=== PATIENT | male | born 1945 | race Hispanic/Latino ===

== ENCOUNTER 2016-10-28 12:53 | Observation (INO) | payer MEDICARE ==
[2016-10-28] MEDS ORDERED: Dextrose 50% SYRINGE Inj (50 ml) ONE (12:55)
[2016-10-28] MEDS ORDERED: Dextrose 50% SYRINGE Inj (50 ml) IVP ONE (13:25)
--- NOTE | 2016-10-28 13:26 | ED PDOC ---
HPI: Altered Mental Status Time Seen by Provider: 10/28/16 13:00 Chief Complaint (Nursing): Weakness/Neurological Deficit History Per: EMS Additional Complaint(s): 70-year-old male, PMHx includes Hypertension and Diabetes is brought to the emergency department with complaints of AMS. Patient was found slumped over in his car, prompting bystander to call 911. Patient had four episodes of non- bloody/non-bilious vomiting prior to arrival, after eating an orange. Patient states he feels light headed. Notes that he did not have breakfast this morning. Past Medical History Reviewed: Historical Data, Nursing Documentation, Vital Signs Vital Signs: Last Vital Signs Temp 97.7 F 10/28/16 13:02 Pulse 69 10/28/16 13:02 Resp 16 10/28/16 13:02 BP 176/81 H 10/28/16 13:02 Pulse Ox 99 10/28/16 13:02 - Medical History PMH: Diabetes, HTN - Surgical History Surgical History: Coronary Stent - Family History Family History: States: Unknown Family Hx - Social History Current smoker - smoking cessation education provided: No Alcohol: None Drugs: Denies - Home Medications Home Medications: Ambulatory Orders Medication Instructions Recorded Folic Acid/Multivit-Min/Lutein 1 tab PO DAILY 06/06/16 [Multi-Vitamin Gummies] Insulin Glargine, Recombina 42 unit SC HS 06/06/16 [Lantus] Metoprolol Tartrate [Lopressor] 25 mg PO Q12H 06/06/16 Simvastatin [Zocor] 20 mg PO HS 06/06/16 Sitagliptin Phos/Metformin HCl 1 tab PO BID 06/06/16 [Janumet 50-1,000 mg Tablet] Tamsulosin [Flomax] 0.4 mg PO DAILY 06/06/16 Umeclidinium Brm/Vilanterol Tr 1 puff IH DAILY 06/06/16 [Anoro Ellipta 62.5-25 Mcg INH] Ursodiol [Ana Forte] 500 mg PO HS 06/06/16 Insulin Lispro [humALOG] 12 units SC BID 10/28/16 - Allergies Allergies/Adverse Reactions: Allergies Allergy/AdvReac Type Severity Reaction Status Date / Time No Known Allergies Allergy Verified 06/06/16 07:14 Review of Systems ROS Statement: Except As Marked, All Systems Reviewed And Found Negative Constitutional: Positive for: Weakness. Negative for: Fever, Chills Cardiovascular: Negative for: Chest Pain, Palpitations Respiratory: Negative for: Cough, Shortness of Breath Gastrointestinal: Negative for: Nausea, Vomiting Musculoskeletal: Negative for: Neck Pain, Back Pain Skin: Negative for: Rash Neurological: Positive for: Dizziness. Negative for: Numbness, Incoordination, Change in Speech, Seizures, Altered Mental Status, Headache Physical Exam - Reviewed Nursing Documentation Reviewed: Yes Vital Signs Reviewed: Yes - Physical Exam Appears: Positive for: Non-toxic, No Acute Distress Head Exam: Positive for: ATRAUMATIC, NORMOCEPHALIC Skin: Positive for: Warm, Dry. Negative for: Rash Eye Exam: Positive for: Normal appearance, EOMI, PERRL Neck: Positive for: Painless ROM Cardiovascular/Chest: Positive for: Regular Rate, Rhythm Respiratory: Positive for: Normal Breath Sounds. Negative for: Accessory Muscle Use, Respiratory Distress Gastrointestinal/Abdominal: Positive for: Soft. Negative for: Tenderness Extremity: Positive for: Normal ROM Neurologic/Psych: Positive for: Alert, Oriented - Laboratory Results Result Diagrams: 10/28/16 13:26 10/28/16 13:26 - ECG O2 Sat by Pulse Oximetry: 99 Medical Decision Making Medical Decision Making: Impression: hypoglycemia. Fingerstick reveals blood sugar: 51 Plan: * EKG * CMP, Trop I * CBC * D50 * Zofran * Urinalysis * Reassess and Disposition Rate 66bpm Rhythm NSR Interpret LVH. No ST elevations pt still weak despite accucheck improved. pt will need obse in the hospital for sugar levels ordered d51/2ns wbc 12. ordered chest xr and urine. pt agreeable to plan to stay in hospital. 1530 Case discussed w/ family and consumer education teacher dr rajput, states pt will be admitted to service. Scribe Attestation: Documented by Melo Chatterjee acting as a scribe for Marisol Mercedes MD. Provider Attestation: All medical record entries made by the Scribe were at my direction and personally dictated by me. I have reviewed the chart and agree that the record accurately reflects my personal performance of the history, physical exam, medical decision making, and the department course for this patient. I have also personally directed, reviewed, and agree with the discharge instructions and disposition. Disposition - Clinical Impression Clinical Impression: Hypoglycemia - Patient ED Disposition Is Patient to be Admitted: Yes Counseled Patient/Family Regarding: Studies Performed, Diagnosis - Disposition Disposition Time: 15:05 Condition: STABLE - Pt Status Changed To: Hospital Disposition Of: Observation
[2016-10-28] MEDS ORDERED: Dextrose 5%/0.2% NS 500 ML IV SCH (13:45)
[2016-10-28 13:46] LABS: BASO % 0.3 % (0.0-2.0); EOS # 0.1 K/uL (0.0-0.7); EOS % 0.6 % (0.0-4.0); LYMPH # 1.7 K/uL (1.0-4.3); LYMPH % 13.6 % (20.0-40.0); MEAN CELL VOLUME 64.8 fl (80.0-94.0); MEAN CORPUSCULAR HEMOGLOBIN 20.6 pg (27.0-31.0); MEAN CORPUSCULAR HGB CONC 31.8 g/dL (33.0-37.0); MEAN PLATELET VOLUME 9.3 fl (7.2-11.7); MONO # 0.8 K/uL (0.0-0.8); MONO % 6.6 % (0.0-10.0); NEUT # 9.9 K/uL (1.8-7.0); NEUT % 78.9 % (50.0-75.0); NRBC % 0.2 % (0.0-0.0); RED CELL DISTRIBUTION WIDTH 16.6 % (11.5-14.5); WHITE BLOOD COUNT 12.6 K/uL (4.8-10.8)
[2016-10-28 13:56] LABS: ALB/GLOB RATIO 1.3 (1.0-2.1); ALKALINE PHOSPHATASE 96 U/L (38-126); ALT/SGPT 38 U/L (21-72); AST/SGOT 45 U/L (17-59); BILIRUBIN,TOTAL 0.9 mg/dl (0.2-1.3); BLOOD UREA NITROGEN 24 mg/dl (9-20); CALCIUM 9.9 mg/dL (8.4-10.2); CARBON DIOXIDE 24 mmol/L (22-30); CHLORIDE 105 mmol/L (98-107); GFR AFRICAN-AMERICAN > 60; GLUCOSE,RANDOM 47 mg/dL (75-110); SODIUM 147 mmol/l (132-148); TOTAL PROTEIN 7.9 G/DL (6.3-8.2)
[2016-10-28] MEDS: Dextrose 5%/0.9% NS 1,000 ML IV SCH ×2 (14:12→23:35)
--- NOTE | 2016-10-28 15:53 | CP.PCM.HP ---
<Luis Angel Scott - Last Filed: 10/28/16 17:04> History of Present Illness - History of Present Illness History of Present Illness: 70 YO M w/ a h/o DM II, HTN, and BPH presented to the ER for lightheaded sensation but no syncope and vomiting. Patient was at an alcoholic anonymous meeting when he suddenly started feeling lightheaded and dizzy. He went outside and and started sweating and continued to be lightheaded. He tried to eat a orange and ended up vomiting and fell to his knees. He had 4 episodes of non- bloody/ non bilious vomiting prior to arrival He did not have any loss of consciousness or hit is head anywhere, an ambulance was called by someone around him and he was brought to [facility] where he had 2 more episodes of vomiting. Denies any numbness, tingling, headache, vision change, chest pain, SOB, or weakness of extremities. - Pt admits to not having breakfast this morning. And he states he might have accidentally taken 2 doses of lantas last night instead of one. PMH: HTN, DM PSH: Stent & Appendectomy in 2004 Allergy: NKDA F/H: Thalasemia, Anemia S/H: Quit drinking 18 years ago, denies, smoking and recreational drug use. Tries to exercise daily. ED course: EKG: NSR, LVH, No ST elevations CMP, Trop I CBC: WBC:12.6, Hb:10.5, Hct:33, MCV:64.8 D50 Zofran Urinalysis Present on Admission - Present on Admission Any Indicators Present on Admission: No Review of Systems - Review of Systems Review of Systems: Negative excep Past Patient History - Infectious Disease Hx of Infectious Diseases: None - Past Medical History & Family History Past Medical History?: Yes - Past Social History Smoking Status: Former Smoker - CARDIAC Hx Hypertension: Yes - PULMONARY Hx Respiratory Disorders: No - NEUROLOGICAL Hx Neurological Disorder: Yes Hx Dizziness: Yes - ENDOCRINE/METABOLIC Hx Endocrine Disorders: Yes - HEMATOLOGICAL/ONCOLOGICAL Hx Blood Disorders: No - MUSCULOSKELETAL/RHEUMATOLOGICAL Hx Musculoskeletal Disorders: No Hx Falls: No - GASTROINTESTINAL Hx Gastrointestinal Disorders: No - PSYCHIATRIC Hx Psychophysiologic Disorder: No Hx Substance Use: No - SURGICAL HISTORY Hx Coronary Stent: Yes - ANESTHESIA Hx Anesthesia: Yes Hx Anesthesia Reactions: No Meds Allergies/Adverse Reactions: Allergies Allergy/AdvReac Type Severity Reaction Status Date / Time No Known Allergies Allergy Verified 06/06/16 07:14 Physical Exam - Constitutional Appears: No Acute Distress - Head Exam Head Exam: ATRAUMATIC, NORMAL INSPECTION, NORMOCEPHALIC - Eye Exam Eye Exam: Normal appearance - Respiratory Exam Respiratory Exam: Clear to Auscultation Bilateral, NORMAL BREATHING PATTERN - Cardiovascular Exam Cardiovascular Exam: REGULAR RHYTHM, +S1, +S2 - GI/Abdominal Exam GI & Abdominal Exam: Normal Bowel Sounds, Soft. absent: Tenderness - Extremities Exam Extremities exam: Positive for: normal inspection. Negative for: calf tenderness Results - Vital Signs Recent Vital Signs: Last Vital Signs Temp 97.7 F 10/28/16 13:02 Pulse 69 10/28/16 15:00 Resp 20 10/28/16 15:00 BP 140/70 10/28/16 15:00 Pulse Ox 99 10/28/16 15:29 - Labs Result Diagrams: 10/28/16 13:26 10/28/16 13:26 Labs: Laboratory Results - last 24 hr 10/28/16 13:26 WBC 12.6 H D RBC 5.09 Hgb 10.5 L Hct 33.0 L MCV 64.8 L MCH 20.6 L MCHC 31.8 L RDW 16.6 H Plt Count 202 MPV 9.3 Neut % (Auto) 78.9 H Lymph % (Auto) 13.6 L Owen % (Auto) 6.6 Eos % (Auto) 0.6 Baso % (Auto) 0.3 Neut # 9.9 H Lymph # 1.7 Owen # 0.8 Eos # 0.1 Baso # 0.0 Sodium 147 Potassium 4.0 Chloride 105 Carbon Dioxide 24 Anion Gap 22 H BUN 24 H Creatinine 0.8 Est GFR ( Amer) > 60 Est GFR (Non-Af Amer) > 60 Random Glucose 47 L Calcium 9.9 Total Bilirubin 0.9 AST 45 ALT 38 Alkaline Phosphatase 96 Troponin I 0.0140 Total Protein 7.9 Albumin 4.5 Globulin 3.4 Albumin/Globulin Ratio 1.3 Assessment & Plan - Assessment and Plan (Free Text) Assessment: Pt is a 70 y/o male with history of HTN, BPH and type 2 diabetes being admitted for Hypoglycemia Plan: 1) Weakness and lightheadedness - likely secondary to hypoglycemia as a result of improper administration of insulin and dehydration. - Mentation improved - dextrose 50 ml IVP given in ER. Dextrose 5%/.9 NS - F/U w/ morning CBC and CMP, Accucheck 2) HTN Continue Metoprolol 25 Q12hrs 3)BPH Flomax 0.4mg PO HS 4) Hyperlipedemia Simvastatin 20 mg PO HS 5)Diabetes Janumet 50-1000mg tab Insulin Glargine 42 units SC HS Humalog 12units SC BID Diabetic diet 6) DVT prophylaxis Lovenox 40 SC daily <Rafael Garcia - Last Filed: 10/29/16 06:41> Results - Vital Signs Recent Vital Signs: Last Vital Signs Temp 100.8 F H 10/28/16 21:04 Pulse 76 10/29/16 05:42 Resp 20 10/28/16 21:04 BP 133/76 10/29/16 05:42 Pulse Ox 96 10/28/16 21:04 - Labs Result Diagrams: 10/28/16 13:26 10/28/16 13:26 Labs: Laboratory Results - last 24 hr 10/28/16 10/28/16 10/28/16 16:34 16:35 18:28 POC Glucose (mg/dL) 162 H Troponin I 0.0130 Urine Color Yellow Urine Clarity Clear Urine pH 6.0 Ur Specific Hugo 1.021 Urine Protein 30 Urine Glucose (UA) 50 Urine Ketones Negative Urine Blood Negative Urine Nitrate Negative Urine Bilirubin Negative Urine Urobilinogen 0.2-1.0 Ur Leukocyte Esterase Neg Urine RBC (Auto) 1 Urine Microscopic WBC 1 Urine Bacteria Rare 10/28/16 10/29/16 18:54 00:30 POC Glucose (mg/dL) 149 H Troponin I 0.0140 Urine Color Urine Clarity Urine pH Ur Specific Hugo Urine Protein Urine Glucose (UA) Urine Ketones Urine Blood Urine Nitrate Urine Bilirubin Urine Urobilinogen Ur Leukocyte Esterase Urine RBC (Auto) Urine Microscopic WBC Urine Bacteria Attending/Attestation - Attestation I have personally seen and examined this patient.: Yes I have fully participated in the care of the patient.: Yes I have reviewed all pertinent clinical information: Yes
--- NOTE | 2016-10-28 16:27 | RAD ---
HISTORY: hypoglycemia COMPARISON: 06/06/2016 FINDINGS: LUNGS: The lungs are clear. PLEURA: No significant pleural effusion identified, no pneumothorax apparent. CARDIOVASCULAR: The heart is normal in size. OSSEOUS STRUCTURES: No significant abnormalities. VISUALIZED UPPER ABDOMEN: Normal. OTHER FINDINGS: None. IMPRESSION: No active pulmonary disease.
[2016-10-28 16:44] LABS: RBC URINE 1 /hpf (0-3); URINE BACTERIA RARE (<OCC); URINE BILIRUBIN NEGATIVE (NEGATIVE); URINE BLOOD NEGATIVE (NEGATIVE); URINE COLOR YELLOW (YELLOW); URINE GLUCOSE (UA) 50 mg/dL (Normal); URINE KETONE NEGATIVE (NEGATIVE); URINE LEUKOCYTE ESTERASE NEG Leu/uL (Negative); URINE PROTEIN 30 mg/dL (NEGATIVE); URINE UROBILINOGEN 0.2-1.0 mg/dL (0.2-1.0); WBC URINE 1 /hpf (0-5)
[2016-10-28] MEDS ORDERED: Glucagon Recombinant 1 mg Inj IM PRN (16:48)
[2016-10-28] MEDS ORDERED: Dextrose 50% SYRINGE Inj (50 ml) IV PRN (16:48)
[2016-10-28] MEDS: Insulin Regular 100 units/ml SC SCH ×2 (18:13→22:50)
[2016-10-28 21:05] VITALS: RESP 20
[2016-10-29] MEDS: Dextrose 5%/0.9% NS 1,000 ML IV SCH (05:43)
[2016-10-29] MEDS: Insulin Regular 100 units/ml SC SCH ×2 (06:50→12:02)
[2016-10-29 07:07] LABS: HEMATOCRIT 27.1 % (35.0-51.0); MEAN CELL VOLUME 64.5 fl (80.0-94.0); MEAN CORPUSCULAR HEMOGLOBIN 21.1 pg (27.0-31.0); MEAN CORPUSCULAR HGB CONC 32.7 g/dL (33.0-37.0); RED CELL DISTRIBUTION WIDTH 16.3 % (11.5-14.5); WHITE BLOOD COUNT 5.7 K/uL (4.8-10.8)
[2016-10-29 07:12] LABS: ALB/GLOB RATIO 1.2 (1.0-2.1); ALKALINE PHOSPHATASE 65 U/L (38-126); ALT/SGPT 49 U/L (21-72); AST/SGOT 46 U/L (17-59); BLOOD UREA NITROGEN 17 mg/dl (9-20); CALCIUM 8.6 mg/dL (8.4-10.2); CARBON DIOXIDE 23 mmol/L (22-30); CHLORIDE 105 mmol/L (98-107); GFR AFRICAN-AMERICAN > 60; GLUCOSE,RANDOM 120 mg/dL (75-110); POTASSIUM 3.9 MMOL/L (3.6-5.0); SODIUM 143 mmol/l (132-148); TOTAL PROTEIN 6.6 G/DL (6.3-8.2)
--- NOTE | 2016-10-29 07:59 | CP.PCM.DIS ---
Addendum entered and electronically signed by Luis Angel Scott MD 10/29/16 11:41 : Physical Exam: General: NAD HEENT: NCAT CVS: RRR, S1S3 heard, no M/R/G Resp: CTAB no W/R/R Abdomen: Soft, NTND, BS + [employer] GUIDE: Cranial nerves intact. Motor and sensation grossly intact Original Note: <Luis Angel Scott - Last Filed: 10/29/16 10:58> Provider - Provider Date of Admission: 10/28/16 15:54 Attending physician: Giancarlo Jackson MD Primary care physician: Giancarlo Jackson MD Time Spent in preparation of Discharge (in minutes): 30 Diagnosis - Discharge Diagnosis (1) Hypoglycemia Status: Acute (2) Dizziness Status: Acute Diagnosis Date: 06/07/16 Hospital Course - Lab Results Lab Results: Most Recent Lab Values WBC 5.7 K/uL (4.8-10.8) D 10/29/16 05:35 RBC 4.20 Mil/uL (4.40-5.90) L 10/29/16 05:35 Hgb 8.9 g/dL (12.0-18.0) L 10/29/16 05:35 Hct 27.1 % (35.0-51.0) L 10/29/16 05:35 MCV 64.5 fl (80.0-94.0) L 10/29/16 05:35 MCH 21.1 pg (27.0-31.0) L 10/29/16 05:35 MCHC 32.7 g/dL (33.0-37.0) L 10/29/16 05:35 RDW 16.3 % (11.5-14.5) H 10/29/16 05:35 Plt Count 144 K/uL (130-400) 10/29/16 05:35 MPV 9.3 fl (7.2-11.7) 10/28/16 13:26 Neut % (Auto) 78.9 % (50.0-75.0) H 10/28/16 13:26 Lymph % (Auto) 13.6 % (20.0-40.0) L 10/28/16 13:26 Ashley % (Auto) 6.6 % (0.0-10.0) 10/28/16 13:26 Eos % (Auto) 0.6 % (0.0-4.0) 10/28/16 13:26 Baso % (Auto) 0.3 % (0.0-2.0) 10/28/16 13:26 Neut # 9.9 K/uL (1.8-7.0) H 10/28/16 13:26 Lymph # 1.7 K/uL (1.0-4.3) 10/28/16 13:26 Ashley # 0.8 K/uL (0.0-0.8) 10/28/16 13: Eos # 0.1 K/uL (0.0-0.7) 10/28/16 13: Baso # 0.0 K/uL (0.0-0.2) 10/28/16 13:26 Sodium 143 mmol/l (132-148) 10/29/16 05:35 Potassium 3.9 MMOL/L (3.6-5.0) 10/29/16 05:35 Chloride 105 mmol/L (98-107) 10/29/16 05:35 Carbon Dioxide 23 mmol/L (22-30) 10/29/16 05:35 Anion Gap 19 (10-20) 10/29/16 05:35 BUN 17 mg/dl (9-20) 10/29/16 05:35 Creatinine 0.7 mg/dL (0.8-1.5) L 10/29/16 05:35 Est GFR ( Amer) > 60 10/29/16 05:35 Est GFR (Non-Af Amer) > 60 10/29/16 05:35 POC Glucose (mg/dL) 126 mg/dL (65-110) H 10/29/16 05:58 Random Glucose 120 mg/dL (75-110) H 10/29/16 05:35 Calcium 8.6 mg/dL (8.4-10.2) 10/29/16 05:35 Total Bilirubin 1.0 mg/dl (0.2-1.3) 10/29/16 05:35 AST 46 U/L (17-59) 10/29/16 05:35 ALT 49 U/L (21-72) 10/29/16 05:35 Alkaline Phosphatase 65 U/L (38-126) 10/29/16 05:35 Troponin I 0.0140 ng/mL (0.00-0.120) 10/29/16 00:30 Total Protein 6.6 G/DL (6.3-8.2) 10/29/16 05:35 Albumin 3.7 g/dL (3.5-5.0) 10/29/16 05:35 Globulin 3.0 gm/dL (2.2-3.9) 10/29/16 05:35 Albumin/Globulin Ratio 1.2 (1.0-2.1) 10/29/16 05:35 Urine Color Yellow (YELLOW) 10/28/16 16:35 Urine Clarity Clear (Clear) 10/28/16 16:35 Urine pH 6.0 (5.0-8.0) 10/28/16 16:35 Ur Specific Philo 1.021 (1.003-1.030) 10/28/16 16:35 Urine Protein 30 mg/dL (NEGATIVE) 10/28/16 16:35 Urine Glucose (UA) 50 mg/dL (Normal) 10/28/16 16:35 Urine Ketones Negative mg/dL (NEGATIVE) 10/28/16 16:35 Urine Blood Negative (NEGATIVE) 10/28/16 16:35 Urine Nitrate Negative (NEGATIVE) 10/28/16 16:35 Urine Bilirubin Negative (NEGATIVE) 10/28/16 16:35 Urine Urobilinogen 0.2-1.0 mg/dL (0.2-1.0) 10/28/16 16:35 Ur Leukocyte Esterase Neg Oswaldo/uL (Negative) 10/28/16 16:35 Urine RBC (Auto) 1 /hpf (0-3) 10/28/16 16:35 Urine Microscopic WBC 1 /hpf (0-5) 10/28/16 16:35 Urine Bacteria Rare (<OCC) 10/28/16 16:35 - Hospital Course Hospital Course: 70 YO M w/ h/p DM II, HTN, and BPH was admitted for hypoglycemia, nausea and vomiting. During the hospital stay pt was given -D5W -Troponin x 3. -Baseline EKG was same as baseline -U/A: WNL -Chest X Ray: WNL - Currently feels much better no SOB, Chest pain, N/V/D. Discharge Exam - Head Exam Head Exam: ATRAUMATIC, NORMOCEPHALIC Discharge Plan - Follow Up Plan Condition: STABLE Disposition: HOME/ ROUTINE Instructions: Weakness (GEN) Additional Instructions: Pt is stable for discharge. F/U w/ PMD w/ in 1 week. Return to ER if symptoms reoccur or worsen. Ambulatory orders: Umeclidinium 1 puff daily Tamsulosin .4 mg PO daily Sitagliptin 1 tab PO BID Lantas 42 units SC HS Lopressor 25 mg PO Q12 Folic acid 1 tab po daily Ursodiol 500 mg PO Hs Simvastatin 20 mg PO HS Humalog 12 units SC BID Referrals: Giancarlo Jackson MD [Primary Care Provider] - <Giancarlo Jackson - Last Filed: 11/01/16 07:01> Provider - Provider Date of Admission: 10/28/16 15:54 Attending physician: Giancarlo Jackson MD Primary care physician: Giancarlo Jackson MD Hospital Course - Lab Results Lab Results: Micro Results 10/28/16 17:20 Urine Urine Culture - Final No Growth (<1,000 CFU/ML) Most Recent Lab Values WBC 5.7 K/uL (4.8-10.8) D 10/29/16 05:35 RBC 4.20 Mil/uL (4.40-5.90) L 10/29/16 05:35 Hgb 8.9 g/dL (12.0-18.0) L 10/29/16 05:35 Hct 27.1 % (35.0-51.0) L 10/29/16 05:35 MCV 64.5 fl (80.0-94.0) L 10/29/16 05:35 MCH 21.1 pg (27.0-31.0) L 10/29/16 05:35 MCHC 32.7 g/dL (33.0-37.0) L 10/29/16 05:35 RDW 16.3 % (11.5-14.5) H 10/29/16 05:35 Plt Count 144 K/uL (130-400) 10/29/16 05:35 MPV 9.3 fl (7.2-11.7) 10/28/16 13:26 Neut % (Auto) 78.9 % (50.0-75.0) H 10/28/16 13:26 Lymph % (Auto) 13.6 % (20.0-40.0) L 10/28/16 13:26 Ashley % (Auto) 6.6 % (0.0-10.0) 10/28/16 13:26 Eos % (Auto) 0.6 % (0.0-4.0) 10/28/16 13:26 Baso % (Auto) 0.3 % (0.0-2.0) 10/28/16 13: Neut # 9.9 K/uL (1.8-7.0) H 10/28/16 13: Lymph # 1.7 K/uL (1.0-4.3) 10/28/16 13: Ashley # 0.8 K/uL (0.0-0.8) 10/28/16 13: Eos # 0.1 K/uL (0.0-0.7) 10/28/16 13: Baso # 0.0 K/uL (0.0-0.2) 10/28/16 13:26 Sodium 143 mmol/l (132-148) 10/29/16 05:35 Potassium 3.9 MMOL/L (3.6-5.0) 10/29/16 05:35 Chloride 105 mmol/L (98-107) 10/29/16 05:35 Carbon Dioxide 23 mmol/L (22-30) 10/29/16 05:35 Anion Gap 19 (10-20) 10/29/16 05:35 BUN 17 mg/dl (9-20) 10/29/16 05:35 Creatinine 0.7 mg/dL (0.8-1.5) L 10/29/16 05:35 Est GFR ( Amer) > 60 10/29/16 05:35 Est GFR (Non-Af Amer) > 60 10/29/16 05:35 POC Glucose (mg/dL) 183 mg/dL (65-110) H 10/29/16 10:41 Random Glucose 120 mg/dL (75-110) H 10/29/16 05:35 Calcium 8.6 mg/dL (8.4-10.2) 10/29/16 05:35 Total Bilirubin 1.0 mg/dl (0.2-1.3) 10/29/16 05:35 AST 46 U/L (17-59) 10/29/16 05:35 ALT 49 U/L (21-72) 10/29/16 05:35 Alkaline Phosphatase 65 U/L (38-126) 10/29/16 05:35 Troponin I 0.0140 ng/mL (0.00-0.120) 10/29/16 00:30 Total Protein 6.6 G/DL (6.3-8.2) 10/29/16 05:35 Albumin 3.7 g/dL (3.5-5.0) 10/29/16 05:35 Globulin 3.0 gm/dL (2.2-3.9) 10/29/16 05:35 Albumin/Globulin Ratio 1.2 (1.0-2.1) 10/29/16 05:35 Urine Color Yellow (YELLOW) 10/28/16 16:35 Urine Clarity Clear (Clear) 10/28/16 16:35 Urine pH 6.0 (5.0-8.0) 10/28/16 16:35 Ur Specific Philo 1.021 (1.003-1.030) 10/28/16 16:35 Urine Protein 30 mg/dL (NEGATIVE) 10/28/16 16:35 Urine Glucose (UA) 50 mg/dL (Normal) 10/28/16 16:35 Urine Ketones Negative mg/dL (NEGATIVE) 10/28/16 16:35 Urine Blood Negative (NEGATIVE) 10/28/16 16:35 Urine Nitrate Negative (NEGATIVE) 10/28/16 16:35 Urine Bilirubin Negative (NEGATIVE) 10/28/16 16:35 Urine Urobilinogen 0.2-1.0 mg/dL (0.2-1.0) 10/28/16 16:35 Ur Leukocyte Esterase Neg Oswaldo/uL (Negative) 10/28/16 16:35 Urine RBC (Auto) 1 /hpf (0-3) 10/28/16 16:35 Urine Microscopic WBC 1 /hpf (0-5) 10/28/16 16:35 Urine Bacteria Rare (<OCC) 10/28/16 16:35 Attending/Attestation - Attestation I have personally seen and examined this patient.: Yes I have fully participated in the care of the patient.: Yes I have reviewed all pertinent clinical information, including history, physical exam and plan: Yes
[2016-10-29 08:41] VITALS: BP 131/76; PULSE 56; TEMP 98.9; O2SAT 98
[2016-10-29] MEDS ORDERED: Enoxaparin 40 mg Syringe SC SCH (09:00)
--- NOTE | 2016-10-29 13:59 | CARD ---
APPROVED REPORT EKG Measurement Heart [id number] <Conclusion> Sinus rhythm with 1st degree AV block Left axis deviation Left ventricular hypertrophy with QRS widening Abnormal ECG
--- NOTE | 2016-10-29 15:56 | CARD ---
APPROVED REPORT EXAM: Two-dimensional and M-mode echocardiogram with Doppler and color Doppler. Other Information Quality : AverageRhythm : NSR INDICATION Hypertension/HCVD LVH 2D DIMENSIONS IVSd1.31 (0.7-1.1cm)LVDd4.50 (3.9-5.9cm) LVOT Diameter1.77 (1.8-2.4cm)PWd1.20 (0.7-1.1cm) IVSs1.74 (0.8-1.2cm)LVDs3.08 (2.5-4.0cm) FS (%) 31.6 %PWs1.62 (0.8-1.2cm) M-Mode DIMENSIONS Left Atrium (MM)4.49 (2.5-4.0cm)IVSd1.15 (0.7-1.1cm) Aortic Root3.96 (2.2-3.7cm)LVDd5.45 (4.0-5.6cm) Aortic Cusp Exc.2.18 (1.5-2.0cm)PWd0.98 (0.7-1.1cm) IVSs1.26 cmFS (%) 29 % LVDs3.88 (2.0-3.8cm)PWs1.29 cm Mitral Valve MV E Icdwltyq851.4cm/sMV DECEL [id number] A Wfciogue59.0cm/s MV SVR66klR/A ratio1.3MVA (PHT)2.65cm2 TDI Lateral E' Peak V13.28cm/sMedial E' Peak V8.64cm/sE/Lateral E'8.2 E/Medial E'12.5 Pulmonary Valve PV Peak Ellhkngy224.4cm/s Tricuspid Valve TR Peak Myatdibn796ot/sRAP PLIERBLH67reSpHV Peak Gr.30mmHg AVRS82lpSu LEFT VENTRICLE The left ventricle is normal size. There is mild concentric left ventricular hypertrophy. The left ventricular function is normal. The left ventricular ejection fraction is within the normal range. The Ejection Fraction is 50-55%. There is normal LV segmental wall motion. The left ventricular diastolic function is normal. There is no mass noted in the left ventricle. RIGHT VENTRICLE The right ventricle is normal size. There is normal right ventricular wall thickness. The right ventricular systolic function is normal. ATRIA The left atrium size is normal. The right atrium size is normal. The interatrial septum is intact with no evidence for an atrial septal defect. AORTIC VALVE The aortic valve is normal in structure and function. No aortic regurgitation is present. There is no aortic valvular stenosis. There is no aortic valvular vegetation. MITRAL VALVE The mitral valve is normal in structure and function. There is no evidence of mitral valve prolapse. There is no mitral valve stenosis. There is no mitral valve regurgitation noted. TRICUSPID VALVE The tricuspid valve is normal in structure and function. There is no tricuspid valve regurgitation noted. There is no tricuspid valve prolapse or vegetation. There is no tricuspid valve stenosis. PULMONIC VALVE The pulmonary valve is normal in structure and function. There is no pulmonic valvular regurgitation. There is no pulmonic valvular stenosis. GREAT VESSELS The aortic root is normal in size. The ascending aorta is normal in size. The IVC is normal in size and collapses >50% with inspiration. PERICARDIAL EFFUSION The pericardium appears normal. There is no pleural effusion. <Conclusion> The left ventricle is normal size. There is mild concentric left ventricular hypertrophy. The left ventricular function is normal. The left ventricular ejection fraction is within the normal range. The Ejection Fraction is 50-55%.
== END 2016-10-29 14:37 | disposition home or self-care (01) ==
LOC: H.ER 12:53 → H.ERHOLD 15:54 → H.MEDSURG1 18:27
PROVIDERS: ADMIT Family Medicine; ATTEND Family Medicine
DX: E11.649 Type 2 diabetes mellitus with hypoglycemia without coma (principal); I10 Essential (primary) hypertension; N40.0 Benign prostatic hyperplasia without lower urinary tract symptoms; Z95.5 Presence of coronary angioplasty implant and graft; I25.10 Atherosclerotic heart disease of native coronary artery without angina pectoris; E86.0 Dehydration; E78.5 Hyperlipidemia, unspecified
CPT/HCPCS: 36415; 71010; 80053; 81003; 82948; 84484; 85025; 85027; 87086; 93005; 93306; 96372; 96374; 96375; 99285; G0378; J1650; J2405; J7042

== ENCOUNTER 2016-10-30 07:51 | Observation (INO) | payer MEDICARE, OTHER ==
[2016-10-30] MEDS ORDERED: Sodium Chloride 0.9% 500 ML IV STA (08:11)
--- NOTE | 2016-10-30 08:14 | ED PDOC ---
Hyperglycemia/Hypoglycemia Time Seen by Provider: 10/30/16 07:55 Chief Complaint (Nursing): Dizziness/Lightheaded Chief Complaint (Provider): Dizziness/Lightheaded History Per: Patient History/Exam Limitations: no limitations Onset/Duration Of Symptoms: Days Current Symptoms Are (Timing): Still Present Severity: Moderate Current Diabetic Medications: Insulin Associated Infectious Symptoms: Nausea : The patient does not have any of the infectious symptoms listed except for those marked. Treatment Prior To Provider Evaluation: None Additional Complaint(s): Patient is a 70 year old male with a history of DM, presents to ED for lightheadedness with nausea this morning. Patient notes similar symptoms yesterday with vomiting, EMS called and blood sugar was found to be 34. Patient was brought to ED at that time, admitted and discharged last night after feeling better. Patient reports that he normally take 50 units of Lantus at night and believes that the night prior he may have accidentally taken an extra dose of Lantus, so last night he only took 10 units. Patient denies chest pain, SOB, vomiting, numbness or tingling. Reports blood sugar at home this morning was 166. No headaches, weakness. NO chest pain, dyspnea. No cough. Past Medical History Reviewed: Historical Data, Nursing Documentation, Vital Signs Vital Signs: Last Vital Signs Temp 97.6 F 10/30/16 07:56 Pulse 50 L 10/30/16 07:56 Resp 20 10/30/16 07:56 BP 168/72 H 10/30/16 07:56 Pulse Ox 98 10/30/16 07:56 - Medical History PMH: Diabetes, HTN, Hypercholesterolemia - Surgical History Surgical History: Coronary Stent - Family History Family History: States: Unknown Family Hx - Living Arrangements Living Arrangements: With Family - Social History Current smoker - smoking cessation education provided: No Alcohol: None Drugs: Denies - Home Medications Home Medications: Ambulatory Orders Medication Instructions Recorded Folic Acid/Multivit-Min/Lutein 1 tab PO DAILY 06/06/16 [Multi-Vitamin Gummies] Insulin Glargine, Recombina 42 unit SC HS 06/06/16 [Lantus] Metoprolol Tartrate [Lopressor] 25 mg PO Q12H 06/06/16 Simvastatin [Zocor] 20 mg PO HS 06/06/16 Sitagliptin Phos/Metformin HCl 1 tab PO BID 06/06/16 [Janumet 50-1,000 mg Tablet] Tamsulosin [Flomax] 0.4 mg PO DAILY 06/06/16 Umeclidinium Brm/Vilanterol Tr 1 puff IH DAILY 06/06/16 [Anoro Ellipta 62.5-25 Mcg INH] Ursodiol [Ana Forte] 500 mg PO HS 06/06/16 Insulin Lispro [humALOG] 12 units SC BID 10/28/16 - Allergies Allergies/Adverse Reactions: Allergies Allergy/AdvReac Type Severity Reaction Status Date / Time No Known Allergies Allergy Verified 10/30/16 08:11 Review of Systems ROS Statement: Except As Marked, All Systems Reviewed And Found Negative Constitutional: Negative for: Fever ENT: Negative for: Ear Pain Cardiovascular: Positive for: Light Headedness. Negative for: Chest Pain, Palpitations Respiratory: Negative for: Shortness of Breath Gastrointestinal: Positive for: Nausea. Negative for: Vomiting, Abdominal Pain Musculoskeletal: Negative for: Neck Pain Neurological: Positive for: Dizziness. Negative for: Weakness, Numbness, Change in Speech, Headache Physical Exam - Reviewed Nursing Documentation Reviewed: Yes Vital Signs Reviewed: Yes - Physical Exam Appears: Positive for: Non-toxic, No Acute Distress Skin: Positive for: Normal Color, Warm Eye Exam: Positive for: Normal appearance, EOMI, PERRL ENT: Positive for: Normal ENT Inspection. Negative for: Nasal Congestion, Pharyngeal Erythema Neck: Positive for: Normal, Painless ROM, Supple Cardiovascular/Chest: Positive for: Regular Rate, Rhythm. Negative for: Murmur Respiratory: Positive for: Normal Breath Sounds. Negative for: Respiratory Distress Gastrointestinal/Abdominal: Positive for: Normal Exam, Soft. Negative for: Tenderness Back: Positive for: Normal Inspection. Negative for: L CVA Tenderness, R CVA Tenderness Extremity: Positive for: Normal ROM. 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 Negative for: Motor/Sensory Deficits, Aphasia, Facial Droop - Laboratory Results Result Diagrams: 10/30/16 10:35 10/30/16 10:35 Interpretation Of Abn Labs: no acute - ECG ECG: Positive for: Interpreted By Me, Viewed By Me ECG Rhythm: Positive for: Sinus Rhythm Interpretation Of Abn EKG: same as old O2 Sat by Pulse Oximetry: 98 (RA) Pulse Ox Interpretation: Normal - CT Scan/US ct Other Rad Studies (CT/US): Read By Radiologist Other Rad Interpretation: no acute - Progress ED Course And Treament: 1158: Stable. AAOx3. Pain free but still dizzy and has weakness all over. Not comfortable going home. Will admit tele obs. [facility] Will admit. Medical Decision Making Medical Decision Making: Time: 0810 Initial impression: R/O hypoglycemia vs intercranial pathology Initial plan: -- CT-head -- EKG -- CMp -- Troponin -- CBC -- PT/PTT -- NSF and Antivert Time: 40 CT results reviewed PROCEDURE: CT HEAD WITHOUT CONTRAST. HISTORY: headache COMPARISON: None available. TECHNIQUE: Axial computed tomography images were obtained through the head/brain without intravenous contrast. Radiation dose: Total exam DLP = mGy-cm. FINDINGS: HEMORRHAGE: No intracranial hemorrhage. BRAIN: No mass effect or edema. No atrophy or chronic microvascular ischemic changes. VENTRICLES: Unremarkable. No hydrocephalus. CALVARIUM: Unremarkable. PARANASAL SINUSES: Unremarkable as visualized. No significant inflammatory changes. MASTOID AIR CELLS: Unremarkable as visualized. No inflammatory changes. OTHER FINDINGS: None. IMPRESSION: Normal CT of the Head. Scribe Attestation: Documented by Negar Yoder acting as a scribe for Dio Thomas MD MD Scribe Attestation: All medical record entries made by the Scribe were at my direction and personally dictated by me. I have reviewed the chart and agree that the record accurately reflects my personal performance of the history, physical exam, medical decision making, and the department course for this patient. I have also personally directed, reviewed, and agree with the discharge instructions and disposition. Disposition - Clinical Impression Clinical Impression: Dizziness, Weakness - Patient ED Disposition Is Patient to be Admitted: Yes Counseled Patient/Family Regarding: Studies Performed, Diagnosis - Disposition Disposition Time: 11:59 Condition: STABLE Instructions: Weakness (ED) - Pt Status Changed To: Hospital Disposition Of: Observation - POA Present On Arrival: None
--- NOTE | 2016-10-30 09:38 | CT ---
PROCEDURE: CT HEAD WITHOUT CONTRAST. HISTORY: headache COMPARISON: None available. TECHNIQUE: Axial computed tomography images were obtained through the head/brain without intravenous contrast. Radiation dose: Total exam DLP = mGy-cm. FINDINGS: HEMORRHAGE: No intracranial hemorrhage. BRAIN: No mass effect or edema. No atrophy or chronic microvascular ischemic changes. VENTRICLES: Unremarkable. No hydrocephalus. CALVARIUM: Unremarkable. PARANASAL SINUSES: Unremarkable as visualized. No significant inflammatory changes. MASTOID AIR CELLS: Unremarkable as visualized. No inflammatory changes. OTHER FINDINGS: None. IMPRESSION: Normal CT of the Head.
[2016-10-30 10:44] LABS: BASO % 0.8 % (0.0-2.0); HEMATOCRIT 28.8 % (35.0-51.0); LYMPH # 0.8 K/uL (1.0-4.3); LYMPH % 20.1 % (20.0-40.0); MEAN CELL VOLUME 65.1 fl (80.0-94.0); MEAN CORPUSCULAR HEMOGLOBIN 21.3 pg (27.0-31.0); MEAN CORPUSCULAR HGB CONC 32.7 g/dL (33.0-37.0); MEAN PLATELET VOLUME 10.2 fl (7.2-11.7); MONO # 0.5 K/uL (0.0-0.8); MONO % 14.2 % (0.0-10.0); NEUT # 2.5 K/uL (1.8-7.0); NEUT % 63.9 % (50.0-75.0); NRBC % 0.5 % (0.0-0.0); RED CELL DISTRIBUTION WIDTH 16.9 % (11.5-14.5); WHITE BLOOD COUNT 3.8 K/uL (4.8-10.8)
[2016-10-30 10:57] LABS: ALB/GLOB RATIO 1.3 (1.0-2.1); ALKALINE PHOSPHATASE 79 U/L (38-126); ALT/SGPT 60 U/L (21-72); AST/SGOT 79 U/L (17-59); BILIRUBIN,TOTAL 0.8 mg/dl (0.2-1.3); CALCIUM 8.9 mg/dL (8.4-10.2); CARBON DIOXIDE 22 mmol/L (22-30); CHLORIDE 107 mmol/L (98-107); GFR AFRICAN-AMERICAN > 60; GLUCOSE,RANDOM 143 mg/dL (75-110); SODIUM 144 mmol/l (132-148)
[2016-10-30 11:04] LABS: PARTIAL THROMBOPLASTIN TIME 28.7 SECONDS (23.3-32.5)
[2016-10-30 11:06] LABS: BLOOD UREA NITROGEN 17 mg/dl (9-20)
[2016-10-30 11:08] LABS: POTASSIUM 4.7 MMOL/L (3.6-5.0)
--- NOTE | 2016-10-30 12:33 | CARD ---
APPROVED REPORT EKG Measurement Heart [id number] <Conclusion> Sinus bradycardia with 1st degree AV block Left axis deviation Left ventricular hypertrophy with QRS widening Cannot rule out Septal infarct, age undetermined Abnormal ECG
[2016-10-30] MEDS ORDERED: Glucagon Recombinant 1 mg Inj IM PRN (16:26)
[2016-10-30] MEDS ORDERED: Dextrose 50% SYRINGE Inj (50 ml) IV PRN (16:26)
[2016-10-30] MEDS: Insulin Regular 100 units/ml SC SCH ×2 (17:01→22:21)
--- NOTE | 2016-10-30 18:18 | CP.PCM.HP ---
<Luis Angel Scott - Last Filed: 10/30/16 18:44> History of Present Illness - History of Present Illness History of Present Illness: 70 YO M w/ h/o DM came into the ER today for lightheadedness, nausea and weakness today. He was here 2 days ago for a hypoglycemic eppisode after he accidently doubled up on his Lantas dose the night before. He was stabilized and was feeling better and was discharged yesterday. After discharge when patient went home and only took 10 units Lantas instead of 50 which is his normal dose. Since he woke up he states he has been feeling nausious, weak, unsteady gait. Denies having any falls or having any head injury. He checked his blood sugar this morning and was 166. - Patient denies chest pain, headache, SOB PMH: HTN, DM PSH: Stent & Appendectomy in 2004 Allergy: NKDA F/H: Thalasemia, Anemia S/H: Quit drinking 18 years ago, denies, smoking and recreational drug use. Tries to exercise daily. ER course: -- CT-head: No hemorrhage noted -- EKG: Same as baseline. LEft ventricular hypertrophy with QRS widening -- CMP -- Troponinx 1 neg -- CBC -- PT/PTT -- NSF and Antivert Present on Admission - Present on Admission Any Indicators Present on Admission: No Review of Systems - Review of Systems Review of Systems: negative except as mentioned in hpi Past Patient History - Infectious Disease Hx of Infectious Diseases: None - Past Medical History & Family History Past Medical History?: Yes - Past Social History Alcohol: None Drugs: Denies - CARDIAC Hx Cardiac Disorders: Yes - PULMONARY Hx Respiratory Disorders: No - NEUROLOGICAL Hx Neurological Disorder: Yes - ENDOCRINE/METABOLIC Hx Endocrine Disorders: Yes - HEMATOLOGICAL/ONCOLOGICAL Hx Blood Disorders: No - MUSCULOSKELETAL/RHEUMATOLOGICAL Hx Falls: No - GASTROINTESTINAL Hx Gastrointestinal Disorders: No - GENITOURINARY/GYNECOLOGICAL Hx Prostate Problems: Yes - PSYCHIATRIC Hx Substance Use: No - SURGICAL HISTORY Hx Coronary Stent: Yes - ANESTHESIA Hx Anesthesia: Yes Hx Anesthesia Reactions: No Hx Malignant Hyperthermia: No Meds Allergies/Adverse Reactions: Allergies Allergy/AdvReac Type Severity Reaction Status Date / Time No Known Allergies Allergy Verified 10/30/16 08:11 Physical Exam - Head Exam Head Exam: ATRAUMATIC, NORMAL INSPECTION, NORMOCEPHALIC - Eye Exam Eye Exam: Normal appearance - Respiratory Exam Respiratory Exam: Clear to Auscultation Bilateral, NORMAL BREATHING PATTERN. absent: Rhonchi, Wheezes - Cardiovascular Exam Cardiovascular Exam: REGULAR RHYTHM, +S1, +S2 - GI/Abdominal Exam GI & Abdominal Exam: Normal Bowel Sounds, Soft. absent: Tenderness - Extremities Exam Extremities exam: Positive for: normal inspection. Negative for: calf tenderness - Neurological Exam Neurological exam: CN II-XII Intact, Normal Gait, Oriented x3 Results - Vital Signs Recent Vital Signs: Last Vital Signs Temp 97.4 F L 10/30/16 16:03 Pulse 55 L 10/30/16 16:03 Resp 20 10/30/16 16:03 BP 183/82 H 10/30/16 16:03 Pulse Ox 97 10/30/16 16:03 - Labs Result Diagrams: 10/30/16 10:35 10/30/16 10:35 Labs: Laboratory Results - last 24 hr 10/30/16 15:59 POC Glucose (mg/dL) 212 H Assessment & Plan - Assessment and Plan (Free Text) Assessment: 1) Weakness and lightheadedness and unstable gait - Meclizine 25mg administered in ER - possibly related to Vit B12 or folate deficiency - F/U with Folate, Vitamin B12, RPR - F/U MRI of brain, holter monitor 2) HTN (Hold) Metoprolol 25 Q12hrs 3)BPH (Hold) Flomax 0.4mg PO HS 4) Hyperlipedemia (Hold) Simvastatin 20 mg PO HS 5)Diabetes Type 2 Insulin Detemir 15 units SC HS Diabetic diet 6) DVT prophylaxis Lovenox 40 SC daily <Giancarlo Jackson - Last Filed: 11/01/16 07:03> Results - Vital Signs Recent Vital Signs: Last Vital Signs Temp 98.4 F 11/01/16 04:53 Pulse 53 L 11/01/16 04:53 Resp 19 11/01/16 04:53 BP 134/65 11/01/16 04:53 Pulse Ox 99 11/01/16 04:53 - Labs Result Diagrams: 10/30/16 10:35 10/30/16 10:35 Labs: Laboratory Results - last 24 hr 10/31/16 10/31/16 11/01/16 15:51 21:53 05:21 POC Glucose (mg/dL) 215 H 150 H 155 H Attending/Attestation - Attestation I have personally seen and examined this patient.: Yes I have fully participated in the care of the patient.: Yes I have reviewed all pertinent clinical information: Yes
[2016-10-30] MEDS: Insulin Detemir 100 Units/ml Inj SC SCH (22:18)
[2016-10-31] MEDS: Insulin Regular 100 units/ml SC SCH ×4 (06:34→23:29)
[2016-10-31 07:25] LABS: CHOLESTEROL 96 mg/dL (0-199)
--- NOTE | 2016-10-31 09:51 | MRI ---
PROCEDURE: MRI BRAIN WITHOUT CONTRAST HISTORY: dizziness, weakess, balance issues COMPARISON: Comparison is made to the previous study dated 06/07/2016 TECHNIQUE: Multiplanar, multisequence MR images of the brain were obtained without intravenous contrast enhancement. FINDINGS: HEMORRHAGE: None DWI: No evidence of an acute or early subacute infarction. BRAIN PARENCHYMA: Mild atrophy and mild white matter chronic microvascular ischemic disease are again noted. No atrophy or chronic microvascular ischemic changes. VENTRICLES: Unremarkable. No hydrocephalus. CRANIUM: Unremarkable. ORBITS: Grossly unremarkable. PARANASAL SINUSES/MASTOIDS: Mild sinuses mucosal thickening. No evidence of air-fluid level. VASCULAR SYSTEM: Skull base flow voids intact. OTHER FINDINGS: None. IMPRESSION: No evidence of acute intracranial hemorrhage acute infarct mass effect or midline shift. No evidence of significant interval change compared to the previous study dated 06/07/2016. Mild sinuses mucosal thickening.
[2016-10-31] MEDS: Enoxaparin 40 mg Syringe SC SCH (10:01)
--- NOTE | 2016-10-31 11:01 | CP.PCM.PN ---
<Luis Angel Scott - Last Filed: 10/31/16 15:29> Subjective - Date & Time of Evaluation Date of Evaluation: 10/31/16 Time of Evaluation: 07:30 - Subjective Subjective: Patient seen at bedside. States he is feeling better then yesterday but still feels lightheaded. Has not had any episodes of vomiting today but was nauseous in the morning. Denies SOB, Chest pain. PT has been tolerating PO intake. Objective - Vital Signs/Intake and Output Vital Signs (last 24 hours): Temp Pulse Resp BP Pulse Ox 98.2 F 59 L 18 168/74 H 97 10/31/16 08:00 10/31/16 10:14 10/31/16 08:00 10/31/16 10:14 10/31/16 08:00 - Medications Medications: Current Medications Dextrose (Glutose 15) 0 gm PO ONCE PRN; Protocol PRN Reason: Hypoglycemia Protocol Dextrose (Dextrose 50% Inj) 0 ml IV STAT PRN; Protocol PRN Reason: Hyglycemia Protocol Enoxaparin Sodium (Lovenox) 40 mg SC DAILY [facility] PRN Reason: Protocol Last Admin: 10/31/16 10:01 Dose: 40 mg Glucagon (Glucagen Diagnostic Kit) 0 mg IM STAT PRN; Protocol PRN Reason: Hypoglycemia Protocol Insulin Detemir (Levemir) 15 units SC [facility] Last Admin: 10/30/16 22:18 Dose: 15 units Insulin Human Regular (Humulin R) 0 units SC ACCU-CHECK [facility] PRN Reason: Protocol Last Admin: 10/31/16 06:34 Dose: Not Given Lisinopril (Zestril) 10 mg PO DAILY [facility] Last Admin: 10/31/16 10:14 Dose: 10 mg Ondansetron HCl (Zofran Inj) 4 mg IVP Q6 PRN PRN Reason: Nausea/Vomiting Tamsulosin HCl (Flomax) 0.4 mg PO DAILY [facility] Last Admin: 10/31/16 09:58 Dose: 0.4 mg - Labs Labs: PT 12.0 SECONDS (9.6-11.2) H 10/30/16 10:35 INR 1.15 (0.92-1.08) H 10/30/16 10:35 APTT 28.7 SECONDS (23.3-32.5) 10/30/16 10:35 - Constitutional Appears: No Acute Distress - Head Exam Head Exam: ATRAUMATIC, NORMAL INSPECTION, NORMOCEPHALIC - Respiratory Exam Respiratory Exam: Clear to Ausculation Bilateral, NORMAL BREATHING PATTERN - Cardiovascular Exam Cardiovascular Exam: REGULAR RHYTHM, +S1, +S2 - GI/Abdominal Exam GI & Abdominal Exam: Soft, Normal Bowel Sounds. absent: Tenderness - Neurological Exam Neurological Exam: Alert, Awake, Oriented x3 Assessment and Plan - Assessment and Plan (Free Text) Assessment: 1) Weakness and lightheadedness and unstable gait - possibly related to uncontrolled hypertension - Neurology consult appreciated: Neurology feels his dizziness is secondary to hypertensive urgency superimposed on hypoglycemic event as his gait function is secondary to diabetic peripheral neuropathy - B12: 495 - MRI of brain showed no acute intercranial abnormalities - Visit nurse services will be set up to help patient with his medication on discharge - Fall precaution ordered - Cardiology consult appreciated. - EKG showed 1st degree AV block: F/U w/ holter monitor - F/U w/ Folate, RPR - F/U w/ carotid U/S 2) HTN Increase in lisinopril dosage from 10 mg to 20 mg - today patients BP was 171/81 after receiving Lisinopril, was given a additional dose of 20 mg Lisinopril 3)BPH Flomax 0.4mg PO HS 4) Hyperlipedemia (Hold) Simvastatin 20 mg PO HS 5)Diabetes Type 2 Insulin Detemir 15 units SC HS Diabetic diet Sliding scale Hypoglycemia protocol 6) Nausea Zofran IVP Q6 7) DVT prophylaxis Lovenox 40 SC daily <Rafael Garcia - Last Filed: 11/01/16 07:16> Objective - Vital Signs/Intake and Output Vital Signs (last 24 hours): Temp Pulse Resp BP Pulse Ox 98.4 F 53 L 19 134/65 99 11/01/16 04:53 11/01/16 04:53 11/01/16 04:53 11/01/16 04:53 11/01/16 04:53 - Medications Medications: Current Medications Acetaminophen (Tylenol 325mg Tab) 650 mg PO Q6 PRN PRN Reason: Headache Last Admin: 10/31/16 17:07 Dose: 650 mg Aspirin (Ecotrin) 81 mg PO DAILY [facility] Dextrose (Glutose 15) 0 gm PO ONCE PRN; Protocol PRN Reason: Hypoglycemia Protocol Dextrose (Dextrose 50% Inj) 0 ml IV STAT PRN; Protocol PRN Reason: Hyglycemia Protocol Enoxaparin Sodium (Lovenox) 40 mg SC DAILY [facility] PRN Reason: Protocol Last Admin: 10/31/16 10:01 Dose: 40 mg Glucagon (Glucagen Diagnostic Kit) 0 mg IM STAT PRN; Protocol PRN Reason: Hypoglycemia Protocol Insulin Detemir (Levemir) 15 units SC [facility] Last Admin: 10/31/16 23:00 Dose: 15 units Insulin Human Regular (Humulin R) 0 units SC ACCU-CHECK [facility] PRN Reason: Protocol Last Admin: 10/31/16 23:29 Dose: Not Given Lisinopril (Zestril) 20 mg PO DAILY [facility] Ondansetron HCl (Zofran Inj) 4 mg IVP Q6 PRN PRN Reason: Nausea/Vomiting Tamsulosin HCl (Flomax) 0.4 mg PO DAILY [facility] Last Admin: 10/31/16 09:58 Dose: 0.4 mg - Labs Labs: PT 12.0 SECONDS (9.6-11.2) H 10/30/16 10:35 INR 1.15 (0.92-1.08) H 10/30/16 10:35 APTT 28.7 SECONDS (23.3-32.5) 10/30/16 10:35 Attending/Attestation - Attestation I have personally seen and examined this patient.: Yes I have fully participated in the care of the patient.: Yes I have reviewed all pertinent clinical information, including history, physical exam and plan: Yes
--- NOTE | 2016-10-31 13:40 | CON ---
DATE: 10/31/2016 CHIEF COMPLAINT: Dizziness and generalized weakness. HISTORY OF PRESENT ILLNESS: This is a 70-year-old man with history of type 2 diabetes mellitus, hype rtension, who initially came to the hospital for worsening dizziness and weakness who was discharged 2 days ago for hypoglycemic episode after he doubled up on his Lantus the night before, which was ad justed and was sent home. Apparently he woke up and felt nauseous with generalized weakness, unstead y gait and dizzy, and therefore came to the hospital for further evaluation. He had elevated systoli c and diastolic blood pressures of 188/90, which his usual blood pressures stay around 130-140 systol ic, according to the patient, which he has measured. His MRI of the brain showed no acute intracrani al abnormalities, just chronic ischemic changes. His blood sugars are currently being monitored. Hi s B12 level is 495. PAST MEDICAL HISTORY: History of hypertension and diabetes. PAST SURGICAL HISTORY: Stent, appendectomy in 2004. ALLERGIES: No known drug allergies. FAMILY HISTORY: Thalassemia, anemia. SOCIAL HISTORY: He quit drinking 18 years ago. Denies any smoking or recreational drug use. Tries to exercise daily. REVIEW OF SYSTEMS: A 14-point review of systems is negative except for the HPI. MEDICATIONS: Reviewed via nurse's reconciliation sheet. PHYSICAL EXAMINATION: VITAL SIGNS: Temperature 98.2, pulse rate ____, blood pressure is 168/74, respiratory rate of 18, ox ygen saturation 97% on room air. GENERAL: The patient is sitting up in bed in no acute distress. HEENT: Atraumatic, normocephalic. PERRLA. Extraocular muscles intact. NECK: Supple, no JVD, no adenopathy noted. LUNGS: Clear to auscultation. No adventitious sounds. HEART: S1, S2, normal rate and rhythm. No murmurs, rubs, or gallops. ABDOMEN: Soft, nontender, nondistended. Bowel sounds are present. EXTREMITIES: No clubbing, no cyanosis ____ bilaterally. NEUROLOGIC: The patient is alert, oriented to person, place, month and year. Speech is fluent, with out any errors. Cranial nerves II through XII are intact. MOTOR: Normal tone, normal bulk of muscle. No pronator drift seen. SENSORY: Decreased light touch and pinprick up to the calves bilaterally. Decreased vibration in th e toes. DTRs ____ at the ankles. COORDINATION: [id number] intact. GAIT: Slightly wide-based. Romberg negative. LABORATORY DATA: B12 is 495, blood sugar was 258. Sodium 144, potassium 2.7, chloride 107, carbon d ioxide 22, BUN of 17, creatinine 0.7. Random glucose of 143. ASSESSMENT AND PLAN: This is a 70-year-old man with past medical history of hypertension, diabetes, coronary artery disease, status post stent with a 2-day history of hypoglycemic episodes after doubli ng up on his Lantus, was brought in for dizziness in terms of lightheadedness rather than a spinning sensation of the room with generalized weakness, nausea and unsteady gait. I feel like his dizziness is more secondary to change in hypertensive urgency superimposed on underlying ____ of his hypoglyce balta event, as well as his gait function is secondary to diabetic peripheral neuropathy, superimposed underlying muscle hypoperfusion, causing unsteady gait. At this time, recommend: 1. Physical and occupational therapy to assess gait function. 2. Monitor his blood sugars. Keep his blood sugars between 140-180. 3. Given his MRI of the brain showed no acute intracranial abnormality and history of coronary arter y disease, recommend him to be on aspirin 81 mg p.o. daily and Lipitor 40 mg p.o. daily for stroke pr evention. 4. Monitor his electrolytes and correct accordingly. No further neurological workup needed at this time. Thank you for this consult. Carlos Arango MD cc: [id number] TT: 10/31/2016 13:39:53 Confirmation # [id number] Dictation # [id number] cordelia
--- NOTE | 2016-10-31 16:25 | US ---
PROCEDURE: Duplex ultrasound of the carotid and vertebral arteries. HISTORY: weakness, dizziness w/ h/o DM and HTN COMPARISON: None available. TECHNIQUE: Grayscale and duplex Doppler evaluation of the cervical carotid and vertebral arteries were performed. The common carotid, carotid bifurcations and cervical ICA and proximal ECA were evaluated. The vertebral arteries were evaluated for gross patency and direction. FINDINGS: There are moderate calcified atherosclerotic plaques in ball lateral carotid bulbs and left internal as well as external carotid arteries. RIGHT CAROTID ARTERIES: Common Carotid Artery: Normal. Maximal flow velocity of 79.0 cm/s. Carotid Bifurcation: Normal. Internal Carotid Artery:Normal. Maximal flow velocity of 102.2 cm/s. External Carotid Artery (proximal branches): Normal. Maximal flow velocity of 77.8 cm/s. ICA/CCA Ratio: 1.3 LEFT CAROTID ARTERIES: Common Carotid Artery: Normal. Maximal flow velocity of 113.6 cm/s. Carotid Bifurcation: Normal. Internal Carotid Artery:Normal. Maximal flow velocity of 97.5 cm/s. External Carotid Artery (proximal branches): Elevated velocity. Maximal flow velocity of 191.6 cm/s. ICA/CCA Ratio: 0.9 VERTEBRAL ARTERIES: Right Vertebral Artery: Patent. Antegrade flow. Left Vertebral Artery: Patent. Antegrade flow. OTHER FINDINGS: None. IMPRESSION: No hemodynamically significant stenosis by peak systolic velocity criteria.
[2016-10-31 17:40] LABS: RAPID PLASMA REAGIN REACTIVE (NONREACTIVE)
[2016-10-31 17:41] LABS: FOLATE > 20.0 ng/mL
--- NOTE | 2016-10-31 20:47 | CP.PCM.CON ---
History of Present Illness - History of Present Illness History of Present Illness: THE PATIENT IS A 70 YEAR OLD MALE WITH A HISTORY OF HYPERTENSION, CAD WITH A CORONARY STENT INSERTION IN 2004, DM, HYPERLIPIDEMIA AND ANEMIA. HE WAS ADMITTED EARLIER IN THE WEEK FOR DIZZINESS SECONDARY TO HYPOGLYCEMIA AND WAS DISCHARGED TWO DAYS AGO. HE FELT DIZZY AND LIGHTHEADED AGAIN YESTERDAY AND CAME TO THE ER AND WAS READMITTED. HIS BLOOD PRESSURE WAS HIGH AND HE IS TREATED WITH LISINOPRIL. CARDIOLOGY WAS ASKED TO SEE AND TREAT HIM. HE DENIES CHEST PAIN OR SOB. Past Patient History - Infectious Disease Hx of Infectious Diseases: None - Past Medical History & Family History Past Medical History?: Yes - Past Social History Alcohol: None Drugs: Denies - CARDIAC Hx Cardiac Disorders: Yes - PULMONARY Hx Respiratory Disorders: No - NEUROLOGICAL Hx Neurological Disorder: Yes - HEENT Hx HEENT Problems: No - RENAL Hx Chronic Kidney Disease: No - ENDOCRINE/METABOLIC Hx Endocrine Disorders: Yes - HEMATOLOGICAL/ONCOLOGICAL Hx Blood Disorders: No - INTEGUMENTARY Hx Dermatological Problems: No - MUSCULOSKELETAL/RHEUMATOLOGICAL Hx Falls: No - GASTROINTESTINAL Hx Gastrointestinal Disorders: No - GENITOURINARY/GYNECOLOGICAL Hx Prostate Problems: Yes - PSYCHIATRIC Hx Substance Use: No - SURGICAL HISTORY Hx Coronary Stent: Yes - ANESTHESIA Hx Anesthesia: Yes Hx Anesthesia Reactions: No Hx Malignant Hyperthermia: No Meds Allergies/Adverse Reactions: Allergies Allergy/AdvReac Type Severity Reaction Status Date / Time No Known Allergies Allergy Verified 10/30/16 08:11 - Medications Medications: Current Medications Acetaminophen (Tylenol 325mg Tab) 650 mg PO Q6 PRN PRN Reason: Headache Last Admin: 10/31/16 17:07 Dose: 650 mg Aspirin (Ecotrin) [address] [facility] Dextrose (Glutose 15) 0 gm PO ONCE PRN; Protocol PRN Reason: Hypoglycemia Protocol Dextrose (Dextrose 50% Inj) 0 ml IV STAT PRN; Protocol PRN Reason: Hyglycemia Protocol Enoxaparin Sodium (Lovenox) [address] [facility] PRN Reason: Protocol Last Admin: 10/31/16 10:01 Dose: 40 mg Glucagon (Glucagen Diagnostic Kit) 0 mg IM STAT PRN; Protocol PRN Reason: Hypoglycemia Protocol Insulin Detemir (Levemir) 15 units SC [facility] Last Admin: 10/30/16 22:18 Dose: 15 units Insulin Human Regular (Humulin R) 0 units SC ACCU-CHECK [facility] PRN Reason: Protocol Last Admin: 10/31/16 17:09 Dose: 4 units Lisinopril (Zestril) [address] [facility] Ondansetron HCl (Zofran Inj) 4 mg IVP Q6 PRN PRN Reason: Nausea/Vomiting Tamsulosin HCl (Flomax) 0.[address] [facility] Last Admin: 10/31/16 09:58 Dose: 0.4 mg Physical Exam - Respiratory Exam Respiratory Exam: Clear to Auscultation Bilateral - Cardiovascular Exam Cardiovascular Exam: REGULAR RHYTHM, +S1, +S2 - Extremities Exam Extremities exam: Positive for: normal inspection - Additional Findings Additional findings: EKG NSR, POSSIBLE OLD SWMI TROPONIN NORMAL ECHO FROM LAST ADMISSION WITH [facility] LVH AND GOOD LV FUNCTION BP BP AT 6 PM TODAY BP 176/92 YESTERDAY BP 134/72 AT 6PM TODAY Results - Vital Signs Recent Vital Signs: Last Vital Signs Temp 98.4 F 10/31/16 18:07 Pulse 57 L 10/31/16 18:07 Resp 18 10/31/16 18:07 BP 134/72 10/31/16 18:07 Pulse Ox 97 10/31/16 17:07 - Labs Result Diagrams: 10/30/16 10:35 10/30/16 10:35 Labs: Laboratory Results - last 24 hr 10/31/16 15:51 POC Glucose (mg/dL) 215 H Assessment & Plan - Assessment and Plan (Free Text) Assessment: HYPERTENSION CAD WITH STENT INSERTION IN 2004 HYPERLIPIDEMIA DM Plan: CONTINUE LISINOPRIL 20 MGS DAILY, LOVENOX, ASPIRIN AND INSULIN ECHO, EKG AND TROPONIN ALREADY DONE NEURO EVALUATION BEING DONE FOLLOW BLOOD PRESSURES
[2016-10-31] MEDS: Insulin Detemir 100 Units/ml Inj SC SCH (23:00)
[2016-11-01] MEDS: Insulin Regular 100 units/ml SC SCH ×2 (08:00→13:00)
--- NOTE | 2016-11-01 08:36 | CON ---
DATE: 10/31/2016 CHIEF COMPLAINT: Dizziness and generalized weakness. HISTORY OF PRESENT ILLNESS: This is a 70-year-old man with past medical history of type 2 diabetes m ellitus, hypertension who came in the hospital with lightheadedness, nausea and generalized weakness, felt like his balance was off. He said that 2 days ago he was here for hypoglycemic episode since h e had accidentally doubled up on his Lantus dose the night before and he was stabilized and discharge d, came back because he had more dizziness in terms of lightheadedness ____ spinning sensation of the room. He was found to be hypertensive with his blood pressures usually more elevated systolically a nd diastolically than before, which was 177/93. His MRI of the brain showed no acute intracranial ab normalities, chronic ischemic changes. He does walk with a wide-based gait and has evidence of diabe tic peripheral neuropathy on neuro examination. His B12 is 495. PAST MEDICAL HISTORY: Hypertension, diabetes. PAST SURGICAL HISTORY: ____ appendectomy in 2004. ALLERGIES: No known drug allergies. FAMILY HISTORY: ____ anemia. SOCIAL HISTORY: Quit drinking 18 years. Denies smoking or recreational drug use. Tries to exercise daily. REVIEW OF SYSTEMS: A 14-point review of systems is negative except as in HPI. PHYSICAL EXAMINATION: VITAL SIGNS: Temperature 98.2, pulse rate of 51, blood pressure 168/74, respiratory rate of 18, oxyg en sat 97% via room air. GENERAL: The patient is sitting up in bed in no acute distress. HEENT: Atraumatic, normocephalic. PERRLA. Extraocular muscles intact. NECK: Supple, no JVD, no adenopathy noted. LUNGS: Clear to auscultation. No adventitious sounds. HEART: S1, S2, normal rate and rhythm. No murmurs, rubs or gallops. ABDOMEN: Soft, nontender, nondistended. Bowel sounds are present. EXTREMITIES: No clubbing, no cyanosis. Peripheral pulses 2+ felt bilaterally. NEUROLOGIC: The patient is alert, oriented to person, place and year. Speech is clear, without any errors. Cranial nerves II through XII intact. MOTOR: Moves all extremities equally. Toes downgoing bilaterally. SENSORY: Light touch and pinprick is decreased up to the calves bilaterally. Decreased vibration of the toes. DTRs are 2+ throughout and 1 at the ankles. COORDINATION: [id number] intact. GAIT: Slightly wide-based. Romberg is negative. LABORATORY DATA: Blood sugar is 131. Today sodium is ____, potassium ____ carbon dioxide 22 ____ ra ndom glucose 143, B12 is 495. ASSESSMENT AND PLAN: This is a 70-year-old man with past medical history of hypertension, history of type 2 diabetes mellitus, recent history of hypoglycemic episode due to doubling up on his Lantus, c margret in for dizziness in terms of lightheadedness and generalized weakness and poor balance. His ligh theadedness and generalized weakness is likely secondary to slight hypertensive urgency given elevate d systolic blood pressure which his baseline blood pressure usually is around 130-140. He came in w ith 183/90. As well as his poor gait is secondary to diabetic peripheral neuropathy. At this time, recommend: 1. Physical therapy evaluation for his gait dysfunction. 2. Keep his systolic ____ 128 and 130 mmHg and adjust his blood pressure meds. 3. Adjust his diabetic medications to avoid hypoglycemic episodes. 4. He should be on aspirin 81 mg daily as well as cholesterol medication ____ Lipitor 20-40 for stro ke prevention. 5. Diabetic education given as well as explained for diabetic diet. 6. Overall, his MRI of the brain showed no acute intracranial abnormalities. Continue to monitor an d get orthostatic vitals and continue with current present medical management. No further neurologic al workup needed at this time. Thank you for this consult. Carlos Arango MD cc: [id number] TT: 10/31/2016 11:49:22 Confirmation # [id number] Dictation # [id number] cordelia
[2016-11-01 08:58] VITALS: RESP 18
[2016-11-01] MEDS: Enoxaparin 40 mg Syringe SC SCH (09:32)
--- NOTE | 2016-11-01 10:45 | CP.PCM.PN ---
Subjective - Date & Time of Evaluation Date of Evaluation: 11/01/16 Time of Evaluation: 09:15 - Subjective Subjective: FEELS BETTER TODAY Objective - Vital Signs/Intake and Output Vital Signs (last 24 hours): Temp Pulse Resp BP Pulse Ox 97.8 F 51 L 18 166/74 H 97 11/01/16 08:00 11/01/16 09:32 11/01/16 08:00 11/01/16 09:32 11/01/16 08:00 - Medications Medications: Current Medications Acetaminophen (Tylenol 325mg Tab) 650 mg PO Q6 PRN PRN Reason: Headache Last Admin: 10/31/16 17:07 Dose: 650 mg Aspirin (Ecotrin) [address] [facility] Last Admin: 11/01/16 09:31 Dose: 81 mg Dextrose (Glutose 15) 0 gm PO ONCE PRN; Protocol PRN Reason: Hypoglycemia Protocol Dextrose (Dextrose 50% Inj) 0 ml IV STAT PRN; Protocol PRN Reason: Hyglycemia Protocol Enoxaparin Sodium (Lovenox) [address] [facility] PRN Reason: Protocol Last Admin: 11/01/16 09:32 Dose: 40 mg Glucagon (Glucagen Diagnostic Kit) 0 mg IM STAT PRN; Protocol PRN Reason: Hypoglycemia Protocol Insulin Detemir (Levemir) [address] [facility] Last Admin: 10/31/16 23:00 Dose: 15 units Insulin Human Regular (Humulin R) 0 units SC ACCU-CHECK [facility] PRN Reason: Protocol Last Admin: 11/01/16 08:00 Dose: 2 units Lisinopril (Zestril) [address] [facility] Last Admin: 11/01/16 09:32 Dose: 20 mg Ondansetron HCl (Zofran Inj) 4 mg IVP Q6 PRN PRN Reason: Nausea/Vomiting Tamsulosin HCl (Flomax) 0.[address] [facility] Last Admin: 11/01/16 09:31 Dose: 0.4 mg - Labs Labs: PT 12.0 SECONDS (9.6-11.2) H 10/30/16 10:35 INR 1.15 (0.92-1.08) H 10/30/16 10:35 APTT 28.7 SECONDS (23.3-32.5) 10/30/16 10:35 - Respiratory Exam Respiratory Exam: Clear to Ausculation Bilateral - Cardiovascular Exam Cardiovascular Exam: REGULAR RHYTHM, +S1, +S2 - Extremities Exam Extremities Exam: Normal Inspection Assessment and Plan - Assessment and Plan (Free Text) Assessment: HYPERTENSION-IMPROVED CAD Plan: CONTINUE ASPIRIN AND LISINOPRIL OK TO DISCHARGE FROM CARDIAC [facility] PATIENT TO FU WITH DR SINGH AND DR MONCADA
--- NOTE | 2016-11-01 16:04 | CP.PCM.DIS ---
<Luis Angel Scott - Last Filed: 11/01/16 18:06> Provider - Provider Date of Admission: 10/31/16 15:30 Attending physician: Giancarlo Jackson MD Primary care physician: Giancarlo Jackson MD Time Spent in preparation of Discharge (in minutes): 30 Diagnosis - Discharge Diagnosis (1) Weakness Status: Acute Hospital Course - Lab Results Lab Results: Most Recent Lab Values WBC 3.8 K/uL (4.8-10.8) L 10/30/16 10:35 RBC 4.43 Mil/uL (4.40-5.90) 10/30/16 10:35 Hgb 9.4 g/dL (12.0-18.0) L 10/30/16 10:35 Hct 28.8 % (35.0-51.0) L 10/30/16 10:35 MCV 65.1 fl (80.0-94.0) L 10/30/16 10:35 MCH 21.3 pg (27.0-31.0) L 10/30/16 10:35 MCHC 32.7 g/dL (33.0-37.0) L 10/30/16 10:35 RDW 16.9 % (11.5-14.5) H 10/30/16 10:35 Plt Count 169 K/uL (130-400) 10/30/16 10:35 MPV 10.2 fl (7.2-11.7) 10/30/16 10:35 Neut % (Auto) 63.9 % (50.0-75.0) 10/30/16 10:35 Lymph % (Auto) 20.1 % (20.0-40.0) 10/30/16 10:35 Arthur % (Auto) 14.2 % (0.0-10.0) H 10/30/16 10:35 Eos % (Auto) 1.0 % (0.0-4.0) 10/30/16 10:35 Baso % (Auto) 0.8 % (0.0-2.0) 10/30/16 10:35 Neut # 2.5 K/uL (1.8-7.0) 10/30/16 10:35 Lymph # 0.8 K/uL (1.0-4.3) L 10/30/16 10:35 Arthur # 0.5 K/uL (0.0-0.8) 10/30/16 10:35 Eos # 0.0 K/uL (0.0-0.7) 10/30/16 10:35 Baso # 0.0 K/uL (0.0-0.2) 10/30/16 10:35 PT 12.0 SECONDS (9.6-11.2) H 10/30/16 10:35 INR 1.15 (0.92-1.08) H 10/30/16 10:35 APTT 28.7 SECONDS (23.3-32.5) 10/30/16 10:35 Sodium 144 mmol/l (132-148) 10/30/16 10:35 Potassium 4.7 MMOL/L (3.6-5.0) 10/30/16 10:35 Chloride 107 mmol/L (98-107) 10/30/16 10:35 Carbon Dioxide 22 mmol/L (22-30) 10/30/16 10:35 Anion Gap 20 (10-20) 10/30/16 10:35 BUN 17 mg/dl (9-20) 10/30/16 10:35 Creatinine 0.7 mg/dL (0.8-1.5) L 10/30/16 10:35 Est GFR ( Amer) > 60 10/30/16 10:35 Est GFR (Non-Af Amer) > 60 10/30/16 10:35 POC Glucose (mg/dL) 301 mg/dL (65-110) H 11/01/16 11:38 Random Glucose 143 mg/dL (75-110) H 10/30/16 10:35 Calcium 8.9 mg/dL (8.4-10.2) 10/30/16 10:35 Total Bilirubin 0.8 mg/dl (0.2-1.3) 10/30/16 10:35 AST 79 U/L (17-59) H D 10/30/16 10:35 ALT 60 U/L (21-72) 10/30/16 10:35 Alkaline Phosphatase 79 U/L (38-126) 10/30/16 10:35 Troponin I < 0.0120 ng/mL (0.00-0.120) 10/30/16 10:35 Total Protein 7.0 G/DL (6.3-8.2) 10/30/16 10:35 Albumin 4.0 g/dL (3.5-5.0) 10/30/16 10:35 Globulin 3.0 gm/dL (2.2-3.9) 10/30/16 10:35 Albumin/Globulin Ratio 1.3 (1.0-2.1) 10/30/16 10:35 Triglycerides 74 mg/DL (0-149) 10/31/16 06:05 Cholesterol 96 mg/dL (0-199) 10/31/16 06:05 LDL Cholesterol Direct 51 mg/dL (0-129) 10/31/16 06:05 HDL Cholesterol 24 MG/DL (30-70) L 10/31/16 06:05 Vitamin B12 495 pg/mL (239-931) 10/31/16 06:05 Folate > 20.0 ng/mL 10/31/16 06:05 RPR Titer 1:2 (NONREACTIVE) H 10/31/16 06:05 RPR Reactive (NONREACTIVE) H 10/31/16 06:05 - Hospital Course Hospital Course: 70 YO M w/ h/o DM, HTN was admitted for weakness, nausea, and dizziness. During his hospital stay patient was thoroughly worked up: -- CT-head: No hemorrhage noted -- EKG: First degree AV block, LEft ventricular hypertrophy with QRS widening -- MRI: WNL -- Carotid U/S: WNL -- CT: WNL No hemorrhage noted -- Troponin x 1 neg -- NSF and Antivert -- Neuro, Cardio consults appreciated - Patients appears to be doing much better, dizziness and weakness have resolved. Patients hypertensive medication has been changed from Metoprolol to Lisinopril for his baseline heart rate in the 50-60's. Ambulatory orders: Flomax .4mg PO daily Sitagliptin/ Metformin 1 tab PO daily Ursodiol 500 mg PO HS Simvastatin 20mg PO HS Asprin 81 mg daily Insulin Lispro 10 units SC BID Insulin Glargine 30 units SC HS Lisinopril 20 mg PO daily Discharge Exam - Head Exam Head Exam: ATRAUMATIC, NORMAL INSPECTION, NORMOCEPHALIC - Eye Exam Eye Exam: Normal appearance - Respiratory Exam Respiratory Exam: Clear to PA & Lateral, NORMAL BREATHING PATTERN - Cardiovascular Exam Cardiovascular Exam: REGULAR RHYTHM, +S1, +S2 - GI/Abdominal Exam GI & Abdominal Exam: Normal Bowel Sounds, Soft. absent: Tenderness - Extremities Exam Extremities exam: normal inspection - Neurological Exam Neurological exam: Alert, CN II-XII Intact, Oriented x3 Discharge Plan - Discharge Medications Prescriptions: Insulin Lispro [Humalog (Insulin Lispro)] 10 unit SC BID #1 cartridge Insulin Glargine, Recombina [Lantus] 30 unit SC HS #1 unit Lisinopril [Prinivil] 20 mg PO DAILY #30 tablet - Follow Up Plan Condition: FAIR Disposition: HOME/ ROUTINE Instructions: Weakness (ED) Additional Instructions: - Patient is stable to go home as per Neurology, Cardiology, PMD - Script has been given to [facility] and Home Physical therapy. For help with managing home medications and physical therapy, - F/U w/ Dr. Rodriguez w/in the next week - F/U w/ Cardiology Dr. Yi - F/U w/ Endocrinology Dr. Lurdes Silver Pt is being discharged w/ the following medication Flomax .4mg PO daily Sitagliptin/ Metformin 1 tab PO daily Ursodiol 500 mg PO HS Simvastatin 20mg PO HS Asprin 81 mg daily Insulin Lispro 10 units SC BID Insulin Glargine 30 units SC HS Lisinopril 20 mg PO daily Referrals: Giancarlo Jackson MD [Primary Care Provider] - Ndaeem Chatman MD [Non-Staff] - Bear Mattson MD [Medical Doctor] - <Giancarlo Jackson - Last Filed: 11/06/16 07:03> Provider - Provider Date of Admission: 10/31/16 15:30 Attending physician: Giancarlo Jackson MD Primary care physician: Giancarlo Jackson MD Hospital Course - Lab Results Lab Results: Most Recent Lab Values WBC 3.8 K/uL (4.8-10.8) L 10/30/16 10:35 RBC 4.43 Mil/uL (4.40-5.90) 10/30/16 10:35 Hgb 9.4 g/dL (12.0-18.0) L 10/30/16 10:35 Hct 28.8 % (35.0-51.0) L 10/30/16 10:35 MCV 65.1 fl (80.0-94.0) L 10/30/16 10:35 MCH 21.3 pg (27.0-31.0) L 10/30/16 10:35 MCHC 32.7 g/dL (33.0-37.0) L 10/30/16 10:35 RDW 16.9 % (11.5-14.5) H 10/30/16 10:35 Plt Count 169 K/uL (130-400) 10/30/16 10:35 MPV 10.2 fl (7.2-11.7) 10/30/16 10:35 Neut % (Auto) 63.9 % (50.0-75.0) 10/30/16 10:35 Lymph % (Auto) 20.1 % (20.0-40.0) 10/30/16 10:35 Arthur % (Auto) 14.2 % (0.0-10.0) H 10/30/16 10:35 Eos % (Auto) 1.0 % (0.0-4.0) 10/30/16 10:35 Baso % (Auto) 0.8 % (0.0-2.0) 10/30/16 10:35 Neut # 2.5 K/uL (1.8-7.0) 10/30/16 10:35 Lymph # 0.8 K/uL (1.0-4.3) L 10/30/16 10:35 Arthur # 0.5 K/uL (0.0-0.8) 10/30/16 10:35 Eos # 0.0 K/uL (0.0-0.7) 10/30/16 10:35 Baso # 0.0 K/uL (0.0-0.2) 10/30/16 10:35 PT 12.0 SECONDS (9.6-11.2) H 10/30/16 10:35 INR 1.15 (0.92-1.08) H 10/30/16 10:35 APTT 28.7 SECONDS (23.3-32.5) 10/30/16 10:35 Sodium 144 mmol/l (132-148) 10/30/16 10:35 Potassium 4.7 MMOL/L (3.6-5.0) 10/30/16 10:35 Chloride 107 mmol/L (98-107) 10/30/16 10:35 Carbon Dioxide 22 mmol/L (22-30) 10/30/16 10:35 Anion Gap 20 (10-20) 10/30/16 10:35 BUN 17 mg/dl (9-20) 10/30/16 10:35 Creatinine 0.7 mg/dL (0.8-1.5) L 10/30/16 10:35 Est GFR ( Amer) > 60 10/30/16 10:35 Est GFR (Non-Af Amer) > 60 10/30/16 10:35 POC Glucose (mg/dL) 226 mg/dL (65-110) H 11/01/16 16:13 Random Glucose 143 mg/dL (75-110) H 10/30/16 10:35 Calcium 8.9 mg/dL (8.4-10.2) 10/30/16 10:35 Total Bilirubin 0.8 mg/dl (0.2-1.3) 10/30/16 10:35 AST 79 U/L (17-59) H D 10/30/16 10:35 ALT 60 U/L (21-72) 10/30/16 10:35 Alkaline Phosphatase 79 U/L (38-126) 10/30/16 10:35 Troponin I < 0.0120 ng/mL (0.00-0.120) 10/30/16 10:35 Total Protein 7.0 G/DL (6.3-8.2) 10/30/16 10:35 Albumin 4.0 g/dL (3.5-5.0) 10/30/16 10:35 Globulin 3.0 gm/dL (2.2-3.9) 10/30/16 10:35 Albumin/Globulin Ratio 1.3 (1.0-2.1) 10/30/16 10:35 Triglycerides 74 mg/DL (0-149) 10/31/16 06:05 Cholesterol 96 mg/dL (0-199) 10/31/16 06:05 LDL Cholesterol Direct 51 mg/dL (0-129) 10/31/16 06:05 HDL Cholesterol 24 MG/DL (30-70) L 10/31/16 06:05 Vitamin B12 495 pg/mL (239-931) 03/30/17 06:05 Folate > 20.0 ng/mL 10/31/16 06:05 RPR Titer 1:2 (NONREACTIVE) H 10/31/16 06:05 RPR Reactive (NONREACTIVE) H 10/31/16 06:05 Attending/Attestation - Attestation I have personally seen and examined this patient.: Yes I have fully participated in the care of the patient.: Yes I have reviewed all pertinent clinical information, including history, physical exam and plan: Yes
[2016-11-01 16:33] VITALS: BP 146/78; PULSE 58; TEMP 98.2; O2SAT 97
== END 2016-11-01 16:40 | disposition home or self-care (01) ==
LOC: H.ER 07:51 → H.ERHOLD 12:03 → H.TEL 15:40 → INTOOBSV 10-31 15:30 → OBSVTOIN 10-31 15:30
PROVIDERS: ADMIT Family Medicine; ATTEND Family Medicine
DX: I16.0 Hypertensive urgency (principal); E11.40 Type 2 diabetes mellitus with diabetic neuropathy, unspecified; E11.649 Type 2 diabetes mellitus with hypoglycemia without coma; I10 Essential (primary) hypertension; I25.10 Atherosclerotic heart disease of native coronary artery without angina pectoris; Z95.5 Presence of coronary angioplasty implant and graft; E78.5 Hyperlipidemia, unspecified; N40.0 Benign prostatic hyperplasia without lower urinary tract symptoms; E86.0 Dehydration
CPT/HCPCS: 36415; 70450; 70551; 71010; 80053; 80061; 81003; 82607; 82746; 82948; 84484; 85025; 85027; 85610; 85730; 86592; 86780; 87086; 93005; 93306; 93880; 96372; 96374; 96375; 97112; 97162; 99285; G0378; G8978; G8979; J1650; J2405; J7040; J7042

== ENCOUNTER 2017-05-26 09:45 | Emergency (ER) | payer MEDICARE, OTHER ==
[2017-05-26 09:53] VITALS: BMI 31.1
[2017-05-26 09:55] VITALS: TEMP 97.5
[2017-05-26] MEDS ORDERED: Sodium Chloride 0.9% 1,000 ML IV STA (10:37)
--- NOTE | 2017-05-26 11:11 | ED PDOC ---
Syncope/Near Syncope/Dizziness Time Seen by Provider: 05/26/17 10:12 Chief Complaint (Nursing): Dizziness/Lightheaded Chief Complaint (Provider): Dizziness, lightheaded History Per: Patient History/Exam Limitations: no limitations Onset/Duration Of Symptoms: Hrs Current Symptoms Are (Timing): Still Present Additional Complaint(s): 71yo male, history of diabetes and currently on insulin, hypertension, CAD, cardiac stents, presents to the ED for evaluation of dizziness, lightheadedness and vomiting for the past 3 hours. Patient reports noticing elevated blood sugar levels; also states he has been heaving and produces very little emesis. He reports his dizziness is not related to position and denies any room spinning sensations. patient denies any numbness, difficulty with ambulation or difficult with gait. Of note, patient was seen in this ED on 10/30/16 for similar symptoms and was admitted. Patient currently also complaining of " spasms in his stomach." Patient states he has followed up with his PCP as well as a neurologist who informed him that his symptoms may be due to hypertension complication or diabetes complications. He currently offers no other medical complaints. Past Medical History Reviewed: Historical Data, Nursing Documentation, Vital Signs Vital Signs: Last Vital Signs Temp 97.5 F L 05/26/17 09:53 Pulse 59 L 05/26/17 09:53 Resp 18 05/26/17 09:53 BP 156/82 H 05/26/17 09:53 Pulse Ox 98 05/26/17 09:53 - Medical History PMH: CAD, Diabetes, HTN, Hypercholesterolemia Denies: HIV, Chronic Kidney Disease - Surgical History Surgical History: Appendectomy (2004), Coronary Stent - Family History Family History: States: No Known Family Hx, Unknown Family Hx - Home Medications Home Medications: Ambulatory Orders Medication Instructions Recorded Folic Acid/Multivit-Min/Lutein 1 tab PO DAILY 06/06/16 [Multi-Vitamin Gummies] Simvastatin [Zocor] 20 mg PO HS 06/06/16 Sitagliptin Phos/Metformin HCl 1 tab PO BID 06/06/16 [Janumet 50-1,000 mg Tablet] Tamsulosin [Flomax] 0.4 mg PO DAILY 06/06/16 Umeclidinium Brm/Vilanterol Tr 1 puff IH DAILY 06/06/16 [Anoro Ellipta 62.5-25 Mcg INH] Ursodiol [Ana Forte] 500 mg PO HS 06/06/16 Insulin Glargine, Recombina 30 unit SC HS #1 unit 11/01/16 [Lantus] Insulin Lispro [Humalog (Insulin 10 unit SC BID #1 cartridge 11/01/16 Lispro)] Lisinopril [Prinivil] 20 mg PO DAILY #30 tablet 11/01/16 - Allergies Allergies/Adverse Reactions: Allergies Allergy/AdvReac Type Severity Reaction Status Date / Time No Known Allergies Allergy Verified 10/30/16 08:11 Review of Systems ROS Statement: Except As Marked, All Systems Reviewed And Found Negative Constitutional: Positive for: Weakness Cardiovascular: Positive for: Light Headedness Gastrointestinal: Positive for: Nausea, Vomiting, Other (stomach spasms) Neurological: Positive for: Dizziness. Negative for: Weakness, Change in Speech Physical Exam - Reviewed Nursing Documentation Reviewed: Yes Vital Signs Reviewed: Yes - Physical Exam Appears: Positive for: Non-toxic, No Acute Distress Head Exam: Positive for: ATRAUMATIC, NORMAL INSPECTION, NORMOCEPHALIC Skin: Positive for: Normal Color Eye Exam: Positive for: EOMI, PERRL. Negative for: Nystagmus Neck: Positive for: Supple Cardiovascular/Chest: Positive for: Regular Rate, Rhythm. Negative for: Murmur Respiratory: Positive for: Normal Breath Sounds. Negative for: Respiratory Distress Gastrointestinal/Abdominal: Positive for: Soft. Negative for: Tenderness Back: Positive for: Normal Inspection Extremity: Positive for: Normal ROM. Negative for: Deformity, Swelling Neurologic/Psych: Positive for: Alert, Oriented, Gait (steady). Negative for: Motor/Sensory Deficits, Aphasia - Laboratory Results Result Diagrams: 05/26/17 11:00 05/26/17 11:00 - ECG ECG: Positive for: Interpreted By Me, Viewed By Me ECG Rhythm: Positive for: Normal QRS, Normal ST Segment, Sinus Bradycardia. Negative for: ST/T Changes Interpretation Of Abn EKG: Left atrial deviation. LVH. Widened QRS Rate: 57 O2 Sat by Pulse Oximetry: 98 (RA) Pulse Ox Interpretation: Normal - Progress Re-evaluation Time: 13:18 Condition: Re-examined, Improved Medical Decision Making Medical Decision Making: Time: 1037 Impression: Dizziness, vomting Differential: Vertigo, dizziness due to hypertension urgency, diabetic neuropathy, gastroparesis Plan: -- CT Head -- Labs -- EKG -- Zofran 4mg IV -- Antivert 25 mg PO -- IV Fluids Reassess Time: 1124 CT Head IMPRESSION: Stable age related neuro degenerative changes remain mild with no interval mass effect, intracranial hemorrhage or cortical edema identified. Follow-up CT or MRI are available as clinically warranted. Scribe Attestation: Documented by Carolina De León acting as a scribe for Michael King MD. Provider Attestation: All medical record entries made by the Scribe were at my direction and personally dictated by me. I have reviewed the chart and agree that the record accurately reflects my personal performance of the history, physical exam, medical decision making, and the department course for this patient. I have also personally directed, reviewed, and agree with the discharge instructions and disposition. Disposition - Clinical Impression Clinical Impression: Dizziness, Chronic anemia - Patient ED Disposition Is Patient to be Admitted: No Doctor Will See Patient In The: Office Counseled Patient/Family Regarding: Studies Performed, Diagnosis, Need For Followup - Disposition Referrals: Giancarlo Jackson MD [Staff Provider] - Disposition: Routine/Home Disposition Time: 13:18 Condition: GOOD Additional Instructions: Return for worsening. Take your medications daily. Follow up with your PCP in 2- 3 days. Instructions: Dizziness (ED)
[2017-05-26 11:17] LABS: BASO % 0.3 % (0.0-2.0); EOS % 0.3 % (0.0-4.0); LYMPH # 0.7 K/uL (1.0-4.3); MEAN CELL VOLUME 62.3 fl (80.0-94.0); MEAN CORPUSCULAR HEMOGLOBIN 20.8 pg (27.0-31.0); MEAN CORPUSCULAR HGB CONC 33.4 g/dL (33.0-37.0); MEAN PLATELET VOLUME 9.2 fl (7.2-11.7); MONO # 0.4 K/uL (0.0-0.8); MONO % 6.7 % (0.0-10.0); NEUT # 4.6 K/uL (1.8-7.0); NEUT % 79.7 % (50.0-75.0); NRBC % 0.2 % (0.0-0.0); RED CELL DISTRIBUTION WIDTH 16.4 % (11.5-14.5); WHITE BLOOD COUNT 5.8 K/uL (4.8-10.8)
--- NOTE | 2017-05-26 11:26 | CT ---
PROCEDURE: CT HEAD WITHOUT CONTRAST. HISTORY: dizziness COMPARISON: Head CT without contrast 10/30/2016 TECHNIQUE: Axial computed tomography images were obtained through the head/brain without intravenous contrast. Radiation dose: Total exam DLP = 876.29 mGy-cm. This CT exam was performed using one or more of the following dose reduction techniques: Automated exposure control, adjustment of the mA and/or kV according to patient size, and/or use of iterative reconstruction technique. FINDINGS: Exam is eyex-md-bbxhkoqyne motion artifacted. HEMORRHAGE: No intracranial hemorrhage. 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 The exam is stable in the interval. No interval intracranial hemorrhage or mass is identified and there is no suspicious extra-axial fluid collection appreciated. Post fossa contents appears stable as well as the craniocervical junction. VENTRICLES: Unremarkable. No hydrocephalus. CALVARIUM: Unremarkable. PARANASAL SINUSES: Unremarkable as visualized. No significant inflammatory changes. MASTOID AIR CELLS: Unremarkable as visualized. No inflammatory changes. OTHER FINDINGS: None. IMPRESSION: Stable age related neuro degenerative changes remain mild with no interval mass effect, intracranial hemorrhage or cortical edema identified. Follow-up CT or MRI are available as clinically warranted.
[2017-05-26 11:28] LABS: ALB/GLOB RATIO 1.4 (1.0-2.1); ALKALINE PHOSPHATASE 106 U/L (38-126); ALT/SGPT 68 U/L (21-72); AST/SGOT 69 U/L (17-59); BILIRUBIN,TOTAL 0.8 mg/dl (0.2-1.3); BLOOD UREA NITROGEN 20 mg/dl (9-20); CALCIUM 9.3 mg/dL (8.4-10.2); CARBON DIOXIDE 20 mmol/L (22-30); CHLORIDE 105 mmol/L (98-107); GFR AFRICAN-AMERICAN > 60; GLUCOSE,RANDOM 190 mg/dL (75-110); LIPASE 20 U/L (23-300); SODIUM 138 mmol/l (132-148); TOTAL PROTEIN 7.3 G/DL (6.3-8.2)
[2017-05-26 13:30] VITALS: BP 145/57; PULSE 58; RESP 16; O2SAT 97
--- NOTE | 2017-05-27 07:34 | CARD ---
APPROVED REPORT EKG Measurement Heart [id number] <Conclusion> Sinus bradycardia Left axis deviation Left ventricular hypertrophy with QRS widening Cannot rule out Septal infarct, age undetermined Abnormal ECG
== END 2017-05-26 13:32 | disposition home or self-care (01) ==
LOC: H.ER 09:45
DX: R42 Dizziness and giddiness (principal); D64.9 Anemia, unspecified; E11.9 Type 2 diabetes mellitus without complications; E78.00 Pure hypercholesterolemia, unspecified; I10 Essential (primary) hypertension; I25.10 Atherosclerotic heart disease of native coronary artery without angina pectoris; Z79.4 Long term (current) use of insulin; Z95.5 Presence of coronary angioplasty implant and graft
CPT/HCPCS: 70450; 80053; 83690; 84484; 85025; 93005; 96374; 99285; J2405; J7040